=== PATIENT | female | born 1990 | race Caucasian/White ===

== ENCOUNTER 2016-04-09 13:54 | Observation (INO) ==
[2016-04-09 14:29] LABS: Bilirubin,Urine Negative (Negative); Blood,Urine Negative (Negative); Clarity,Urine Cloudy (Clear); Color,Urine Yellow (Yellow); Glucose,Urine (UA) Normal (Normal); Ketones,Urine Negative (Negative); Leukocyte Esterase,Urine Small (Negative); Nitrite,Urine Negative (Negative); PH,Urine 6.5 pH Units (5.0-8.0); Protein,Urine 30 mg/dL (Neg-Trace); Specific Gravity,Urine 1.027 (1.010-1.025); Urobilinogen,Urine Normal (Normal)
[2016-04-09 14:31] LABS: Bacteria,Urine Many per hpf (None-Few); Hyaline Casts,Urine None Seen per lpf (None-Few); Squamous Epithelial Cell,Urine Many per lpf (None-Few)
--- NOTE | 2016-04-09 15:14 | OB/GYN Progress Note ---
Date of Encounter: 04/09/16 Time of Encounter: 15:12 - Assessment and Plan (1) 30 weeks gestation of Status: Acute Patient is currently 30 weeks + 3 days. No contractions seen on monitor and baby has good heart tones. Patient is in no acute distress at this time and will be discharged home to follow up with her primary HEALTH INFORMATION PROVIDER for further recommendations. (2) Abdominal pain during Status: Acute Patient presents with midepigastric pain. No contraction seen on monitor. UA was negative for UTI and vaginal pH was acidic. Most likely this abdominal pain is secondary to acid reflux or a gastritis. Recommended patient try some [id number] pepcid or Zantac to help with the possibility of heartburn. Will do a PO challenge prior to discharge and give patient PO zofran if needed. Qualifiers: Trimester: third trimester Qualified Code(s): O26.893 - Other specified related conditions, third trimester; R10.9 - Unspecified abdominal pain Subjective - Subjective Principal diagnosis: 30 weeks gestation with abdominal pain Interval history: Ms Jacobs is a 25yo female at 30 weeks + 3 days who presents with abdominal pain. Patient reports that starting yesterday she had abdominal pain. The pain is located in the midepigastric region and goes to her back. She describes the pain as sharp and cramping. Pain is episodic, lasting about 5min each time. She reports that this morning after she tried to eat she became nauseous and vomited. She also reports a headache and some vaginal itching. Patient denies any vaginal bleeding/discharge, loss of fluids, vision changes, chest pain, SOB, or changes in bowel or bladder function. She reports good movement. Patient's first was a vaginal delivery at 33 weeks due to pre- eclampsia. Second was a PPROM with spontaneous vaginal delivery at 32 weeks. Third was a at 39 weeks for breech presentation. I examined this patient and my medical decision-making was reviewed with the MARKETING TRAFFIC MANAGER/PA/Advanced Practice Nurse/Resident Physician. I agree with the documented findings, disposition and treatment plan as described except to the extent set forth below. Antepartum ROS: movement normal, no loss of fluid, no vaginal bleeding, no contractions Objective - Vital Signs Vital Signs: Intake and Output 04/08/16 04/09/16 04/09/16 23:59 07:59 15:59 Other: Weight 138 kg Patient Weight 04/09/16 23:59 Weight 138 kg - Exam FHR: auscultation normal Auscultation: bilateral: normal Abdomen: Present: normal appearance, soft, gravid. Absent: tenderness Comments: Vaginal pH test was acidic. - Labs Labs: Abnormal lab results Urine Clarity Cloudy (Clear) A 04/09/16 14:15 Ur Specific [place] 1.027 (1.010-1.025) H 04/09/16 14:15 Urine Protein 30 mg/dL (Neg-Trace) H 04/09/16 14:15 Ur Leukocyte Esterase Small (Negative) H 04/09/16 14:15 Urine Microscopic RBC 5-15 per hpf (0-3) H 04/09/16 14:15 Urine Microscopic WBC 5-15 per hpf (0-3) H 04/09/16 14:15 Ur Squamous Epith Cells Many per lpf (None-Few) H 04/09/16 14:15 Urine Bacteria Many per hpf (None-Few) H 04/09/16 14:15 Ur Culture Indicated? YES (NO) A 04/09/16 14:15
[2016-04-09] MEDS ORDERED: Ondansetron ODT 4 MG TAB.RAPDIS SL ONE (15:38)
== END 2016-04-09 17:40 | disposition home or self-care (01) ==
LOC: 1NENULAB
PROVIDERS: ADMIT Obstetrics & Gynecology; ATTEND Obstetrics & Gynecology

== ENCOUNTER 2016-05-26 19:48 | Observation (INO) ==
--- NOTE | 2016-05-26 20:21 | OB/GYN History & Physical ---
Date of Encounter: 05/26/16 Time of Encounter: 20:20 Assessment and Plan (1) 37 weeks gestation of Current visit: Yes Status: Acute Concern of patient was for SROM. Nitrazine negative (strongly yellow). Negative microscopic fern. No pooling within vaginal vault (per NMW Carmella Yinger). Cervix visually closed (per NMW Carmlela Yinger). No symptoms of UTI. Will discharge patient home. She already has an appointment with her OB, Dr. Garcia, tomorrow. History of Present Illness Chief complaint: vaginal discharge HPI: Ms. Jacobs is a 25 year old female presents from home with chief complaint vaginal discharge. Experienced appx 1 hour prior to arrival. ([id number]), 37w 2d. Hx Pre-eclampsia at 32w/SROM at 33w/C-sec at 39w breech. Patient does not feel any contractions or pain. Her last intercourse was this morning. OB: Dr. Garcia, [facility] PMH: Hep C+, Blood type O+ Past Med Surg Social Fam HX - Past Medical History Medical history: hepatitis Psychiatric history: no psych history - Past Surgical History Surgical History: , orthopedic, other - Social History Smoking Status: Former smoker Smokeless Tobacco Status: No Alcohol use: none Drug use: none - Family History Sister Family Member Ethnicity: Non- Living Status: Still Living Hx Family Cardiac Disorders: No Hx Family Respiratory Disorders: No Hx Family Cancer: No Hx Family GI Disorders: No Hx Family Endocrine Disorder: No Hx Family Neuromuscular Disorders: No Hx Family Neurologic Disorders: No Hx Family HEENT Disorders: No Hx Family Autoimmune Disorders: No Obstetrical History - Pregnancies : 4 Para: 3 Term: 1 : 3 Ab's: 0 Livin - History/Complications History/Complications: 1: Pre-eclampsia; induced @ 32wks. 2: SROM at 33wks. 3: at 39wks. indication: breech. Medications and Allergies Tablet 1 tab PO DAILY 02/04/16 [History] Progesterone IM QWEEK 02/04/16 [History] Allergies No Known Allergies Allergy (Verified 10/20/15 18:08) Review of System OB - Constitutional Constitutional ROS IM: no fatigue, no fever(s), no headache(s) - Nose, mouth, and throat Nose, mouth and throat: no dizziness - Cardiovascular Cardiovascular: no chest pain, no dyspnea, no edema - Respiratory Respiratory: no cough, no wheezing - Gastrointestinal Gastrointestinal: no abdominal pain, no change in bowel habits, no heartburn, no nausea - Genitourinary Genitourinary: vaginal discharge, no difficulty urinating, no flank pain, no pelvic pain, no urinary hesitancy, no urinary urgency - Muscloskeletal Musculoskeletal: no back pain, no numbness, no tingling Exam - Constitutional Constitutional: well developed, well nourished, no acute distress, obese - HEENT HEENT: Normocephaly, Mucus Membranes Moist - Neck Neck exam: normal inspection, supple - Lungs Respiratory exam: CTAB - Cardiovascular Cardiovascular exam: RRR, +S1, +S2 - Abdomen Abdomen: Present: bowel sounds normal, gravid, non tender. Absent: guarding noted - Extremities Extremities exam: normal capillary refill, normal inspection - Vagina Vagina: Present: normal moisture (per Wheelchair Rental Clerk Carmella Yinger) - Cervix Cervix: Absent: discharge (per Wheelchair Rental Clerk Carmella Yinger) Dilation: 0 (per Wheelchair Rental Clerk Carmella Yinger) - Uterus Uterus exam: Present: enlarged Results All other labs normal.
== END 2016-05-26 20:55 | disposition home or self-care (01) ==
LOC: 1NENULAB
PROVIDERS: ADMIT Obstetrics & Gynecology; ATTEND Obstetrics & Gynecology

== ENCOUNTER 2016-06-03 20:56 | Observation (INO) ==
[2016-06-03 21:42] LABS: Bilirubin,Urine Negative (Negative); Blood,Urine Negative (Negative); Clarity,Urine Cloudy (Clear); Color,Urine Yellow (Yellow); Glucose,Urine (UA) Normal (Normal); Ketones,Urine Negative (Negative); Leukocyte Esterase,Urine Small (Negative); Nitrite,Urine Negative (Negative); Protein,Urine Negative (Neg-Trace); Specific Gravity,Urine 1.024 (1.010-1.025); Urobilinogen,Urine Normal (Normal)
[2016-06-03 21:44] LABS: Bacteria,Urine Moderate per hpf (None-Few); Hyaline Casts,Urine None Seen per lpf (None-Few); Squamous Epithelial Cell,Urine Many per lpf (None-Few); WBC,Urine 30-50 per hpf (0-3)
--- NOTE | 2016-06-03 21:44 | OB/GYN Progress Note ---
Date of Encounter: 06/03/16 Time of Encounter: 21:42 - Assessment and Plan (1) 38 weeks gestation of Current Visit: Yes Status: Acute Patient receives care with Dr. Garcia for . She is concerned for rupture of membranes which has been ruled out (2) Vaginal discharge during in third trimester Current Visit: Yes Status: Acute Vaginosis panel obtained, we will treat as indicated (3) Previous delivery affecting , antepartum Current Visit: Yes Status: Acute Patient considering . Advised that this is not performed at this hospital. No indication for today (4) Obesity affecting in third trimester Current Visit: Yes Status: Chronic Increased risk for morbidity with section. Patient is being cared for by Dr. Garcia Subjective - Subjective Principal diagnosis: 38 wk IUP Interval history: Patient is a 26-year-old female at [address] Garcia who presents to labor and delivery concerned that her water has broken. She was a previous and is considering a . She reports a gush of fluid running down her legs. She denies any vaginal bleeding. She denies any recent intercourse or vaginal irritation. She reports some vaginal discharge. The patient has recently decided that she wants a repeat and wants it soon. She reports that the fetus is active. She denies any contractions. No records are available for review Antepartum ROS: new complaints, loss of fluid, movement normal, no vaginal bleeding, no contractions Objective - Exam FHR: auscultation normal, category 1 FHR comments: Baseline 130s Auscultation: bilateral: normal Abdomen: Present: normal appearance, soft, gravid. Absent: distention, tenderness Uterus: Absent: tenderness Cervical dilation: Visually closed and thick Comments: Scant amount of vaginal discharge with nitrazine negative. Vaginosis panel obtained. No pooling
[2016-06-03 21:54] LABS: Mucus,Urine Moderate (Few)
[2016-06-03 22:43] LABS: Candida DNA Not Detected (Not Detect); Gardnerella DNA Not Detected (Not Detect); Trichomonas DNA Not Detected (Not Detect)
== END 2016-06-03 23:10 | disposition home or self-care (01) ==
LOC: 1NENULAB
PROVIDERS: ADMIT Obstetrics & Gynecology; ATTEND Obstetrics & Gynecology